=== PATIENT | male | born 1990 | race Caucasian/White ===

== ENCOUNTER 2016-11-19 17:20 | Inpatient (IN) | payer OTHER ==
[~2016-11-19] VITALS: Ht 180.3 cm; Wt 82.4 kg
[2016-11-19 17:31] VITALS: BP 110/67; PULSE 136; RESP 16; O2SAT 100
[2016-11-19 17:45] VITALS: BP 115/79; PULSE 100; RESP 13; O2SAT 99
[2016-11-19] MEDS ORDERED: Pantoprazole 4 mg/mL 10 mL Inj ONE (17:56)
[2016-11-19] MEDS ORDERED: Ondansetron 2 mg/mL 2 mL Inj ONE (17:57)
[2016-11-19 18:10] LABS: BASOPHILS % (AUTO) 0.3 % (0-3); EOSINOPHILS % (AUTO) 2.3 % (0-5); MONOCYTES % (AUTO) 6.9 % (4-12); Mean Corpuscular Hemoglobin 29.1 pg (27.0-35.0); Mean Corpuscular Volume 84.4 fL (81-100); NEUTROPHILS % (AUTO) 60.9 % (40-74); Platelet Count 354 bil/L (150-400)
--- NOTE | 2016-11-19 18:15 | ED.REPORT ---
HPI-GI Bleed Date of Service Nov 19, 2016 ED Provider: Ariel Torres MD Patient is a 26 year old male who presents to the ED accompanied by his mother due to hematemesis and hematuria this morning. He noticed intermittent abdominal and back pain beginning two days ago. Pain has increased in severity since onset. Pt had an ulcer ten years ago and describes this as the same type of pain. He has not had any issues with ulcers since that occurrence. He does not drink regularly. He is borderline tachycardic upon arrival. Nursing Notes Stated Complaint: BLEEDING ULCER, THROWING UP Chief Complaint: Male Abdominal Pain Nursing Notes Reviewed: Yes Allergies: Coded Allergies: No Known Allergies (Verified , 11/19/16) No Active Prescriptions or Reported Meds General Time Seen by Provider: 18:20 Chief Complaint Chief Complaint: Vomiting bright red blood Hx Obtained From: Patient Arrived By: Walk-in Onset Occurred: 5 - 8 hours ago Symptom Duration: Since onset Recent Healthcare: No recent doctor visit, No recent hospitalization Similar Sx Previous: No Past Medical History Past Medical History ulcer Social History Other Social History: Local resident Ambulatory Status Independent Review of Systems GI: Reports: Abdominal pain, Hematemesis, Hematochezia Complete sys rev & neg: except as marked. Musculoskeletal: Reports: Back pain Physical Exam Initial Vital Signs Vital Signs (First) Date Time Temp Pulse Resp B/P Pulse Ox O2 Delivery O2 Flow Rate FiO2 11/19/16 17:31 36.5 136 16 110/67 100 11/19/16 17:45 Nasal Cannula 2 Initial VS: Reviewed (pal) Head / Eyes: Atraumatic, Normocephalic, PERRL ENT: Mucous membranes moist, Conjunctiva normal, No scleral icterus Neck: Supple, Non-tender, Full range of motion Extremities: Vascular intact, Neuro intact, No swelling, No tenderness Skin: Warm, Dry, No cyanosis Neurologic: Alert, Oriented, Nonfocal Psychiatric: Mood/affect normal, Behavior normal, Normal thought content General/Constitutional: Awake, Alert, Cooperative Appearance / Presentation: Positive: Pale Respiratory / Chest: Atraumatic, Breath sounds NL, Breath sounds = bilat, No respiratory distress Cardiovascular: Heart rate NL, Regular rhythm, Heart sounds NL Abdomen: Atraumatic, Soft, Non-tender, No guarding, No rebound Rectum / Perineum: Atraumatic Interpretation & Diagnostics Lab Results Interpretation Result Diagram: 11/19/16 2240 11/19/16 1750 Test 11/19/16 17:50 White Blood Count 11.0th/mm3 (3.8-10.1) Red Blood Count 3.92mil/mm3 (4.40-5.80) Mean Corpuscular Volume 84.4fL (81-100) Mean Corpuscular Hemoglobin 29.1pg (27.0-35.0) Mean Corpuscular Hemoglobin Concent 34.4% (32.0-37.0) Red Cell Distribution Width 12.1% (12.3-15.4) Platelet Count 354bil/L (150-400) Neutrophils (%) (Auto) 60.9% (40-74) Lymphocytes (%) (Auto) 29.2% (14-46) Monocytes (%) (Auto) 6.9% (4-12) Eosinophils (%) (Auto) 2.3% (0-5) Basophils (%) (Auto) 0.3% (0-3) Prothrombin Time 11.0sec (8.1-12.5) Prothromb Time International Ratio 1.03ratio Sodium Level 138mEq/L (134-144) Potassium Level 3.6mEq/L (3.5-5.2) Chloride Level 101mEq/L (97-108) Carbon Dioxide Level 21mmol/L (18-29) Blood Urea Nitrogen 32mg/dL (6-20) Creatinine 0.95mg/dL (0.76-1.27) Estimat Glomerular Filtration Rate 101mL/min (>59) Glucose Level 145mg/dL (60-99) Calcium Level 8.5mg/dL (8.5-10.1) Magnesium Level 1.8mg/dL (1.6-2.6) Total Bilirubin 0.6mg/dL (0.0-1.2) Aspartate Amino Transf (AST/SGOT) 14U/L (0-50) Alanine Aminotransferase (ALT/SGPT) 15U/L (0-44) Alkaline Phosphatase 58U/L (25-150) Total Protein 6.1g/dL (6.4-8.4) Albumin 4.1g/dL (3.4-5.0) Lipase 25U/L (13-60) ECG Interpretation Time: 18:50 Interpreted by: ED physician Normal ECG Interpretation: Normal rate, Normal sinus rhythm, No acute ischemic changes, Normal QRS, Normal axis, Normal intervals, No change from prior ECGs, Adequate tracing X-Ray Chest Interpretation Chest Xray Interpretation: IMPRESSION: No acute cardiopulmonary findings. Dictated by: Shivani Arthur M.D. on 11/19/2016 at 18:51 Approved by: Shivani Arthur M.D. on 11/19/2016 at 18:51 View: Portable Interpretation / Wet Read by: Interpret - Radiologist Re-Eval/Medical Decision Med Decision/Clinical Course 26-year-old with a prior history of ulcer ten years ago presents with similar symptoms and again is vomiting blood with black material in his stool is grossly heme positive. Initial hemoglobin is slightly low. BUN is elevated suggesting blood ingestion. No liver disease or reason to suspect varices. Likely recurrent ulcer. Discussed with GI. Admitted now for monitoring of hemoglobin and transfusion if need be. Transported in stable condition. Re-Evaluation/Progress : Time of Eval: 19:15 Patient Status: Condition unchanged Re-Evaluation/Progress Note: Nurse reports that pt has vomited and had diarrhea again. Both had red coloration. Consultation : Referral / Consult Name: Eliseo Bingham MD Consulted With: Hospitalist Call Returned at: 21:42 Automatic Profile Sander Operator: Agrees with eval, Agrees with plan Note: Case discussed. Dr. Bingham accepts admit. Counseled Regarding: Diagnosis, Lab results, Need for admission Discharge & Departure Impression: Primary Impression: UGI bleed Disposition: ADMITTED TO HOSPITAL Discharge Condition All VS Reviewed: Yes Condition: Stable Referrals: Massimo Small MD (PCP) [facility] Attestation Portion of this note were transcribed by Sarah Waters. I, Dr. Torres, personally performed the history, physical exam, and medical decision-making: I reviewed and confirmed the accuracy for the information in the transcribed note. Signed by: richard Shankar, 11/19/16 2200 copies to: Massimo Small MD, Christopher W MD Nov 19, 2016 18:15 Sarah Waters Nov 19, 2016 18:26
[2016-11-19] MEDS ORDERED: 0.9% Sodium Chloride 1,000 ML IV ONE ×2 (18:16→22:00)
[2016-11-19] MEDS ORDERED: Octreotide Inj 500 MCG in 0.9% Sodium Chloride 100 ML IV ONE (18:20)
[2016-11-19] MEDS ORDERED: Pantoprazole Inj 80 MG, Pharmacy To Mix 1 EA in 0.9% Sodium Chloride 80 ML IV ONE ×2 (18:20)
[2016-11-19 18:26] LABS: INR 1.03 ratio
--- NOTE | 2016-11-19 18:53 | DRSVH ---
PROCEDURE: X-RAY CHEST ONE VIEW, PORTABLE ([id number]) INDICATIONS: ugi bleed TECHNIQUE: One view of the chest was acquired. COMPARISON: None. FINDINGS: Surgical changes and devices: None. Lungs and pleura: No pleural effusions or pneumothorax. Lungs are clear. Mediastinum: Mediastinal contours appear normal. Heart size is normal. Bones and chest wall: No suspicious bony lesions. Overlying soft tissues appear unremarkable. IMPRESSION: No acute cardiopulmonary findings. Dictated by: Shivani Arthur M.D. on 11/19/2016 at 18:51 Approved by: Shivani Arthur M.D. on 11/19/2016 at 18:51
[2016-11-19] MEDS ORDERED: Ondansetron 2 mg/mL 2 mL Inj IVPUSH PRN (22:10)
[2016-11-19] MEDS ORDERED: Alum-Mag Hydrox-Simeth 30 mL Suspension PO PRN (22:10)
[2016-11-19] MEDS ORDERED: Polyethylene Glycol (PEG) 17 Gm Powder PO PRN (22:10)
[2016-11-19] MEDS ORDERED: EPINEPHrine 0.1 mg/mL 10 mL Syringe ONE (22:19)
[2016-11-19 22:22] VITALS: BP 117/52; PULSE 87; RESP 16; O2SAT 98
[2016-11-19 23:02] VITALS: BP 124/69; PULSE 83; RESP 16; O2SAT 100
--- NOTE | 2016-11-19 23:02 | PCM.HPMED ---
Subjective Date of Service Nov 19, 2016 Primary Provider: Admitting Physician: Yamila Fleming MD Primary Care Physician: Massimo Small MD Attending Physician: Yamila Fleming MD Admit Status: From the Emergency Department Chief Complaint: Hematochezia, hematemesis. Back pain History of Present Illness: Patient is a pleasant 26-year-old gentleman who presented to emergency department accompanied by his mother after having episode of hematemesis and hematochezia early this morning. 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 He has a history of hematemesis and hematochezia at the age of 16 for which he underwent endoscopy and was found to have a rather large duodenal ulcer, per mother there were told this was due to H. pylori and he was placed on the standard treatment. He had follow-up endoscopy performed several months later and was deemed to be resolved. He has not been on any medication since. He denies any trauma, or any precipitating event to cause recurrence of the symptoms. He denies copious alcohol use, last drink was 2-3 weeks ago. He does not smoke, he does not do recreational drugs. Studies only had lightheadedness and dizziness since presenting to the emergency department. He does not have any chest pain, shortness of breath, weakness, numbness, changes in vision, headache, chest palpitations, dysuria. He denies any abdominal pain or discomfort. An attempt to quantify, patient claims he believes he has put out between 6-10 "Coke cans" of blood, all but half a can with per bowel movement. Says it is a mix of black and bright red blood. In the emergency department he had a heart rate of 136, blood pressure 110/67, satting 100% on room air, afebrile, White blood cells 11.0, hemoglobin 11.4, hematocrit 33.1, RDW 12.1, platelets 354. Electrolytes were normal, BUN 32, creatinine 0.95, glucose 145, magnesium 1.8, liver enzymes normal, alkaline hosphatase normal, total protein 6.1, and lipase was 25. EKG: Rate 96, sinus rhythm, normal axis, no evidence of acute ischemia, infarction, or AV conduction abnormality. Chest x-ray was read as "o acute cardiopulmonary findings." Review of Systems: Comprehensive review of systems negative unless specified in history of present illness Allergies Coded Allergies: No Known Allergies (Verified , 11/19/16) Home Medications Denies any home medications PMH Duodenal ulcer secondary to H. pylori infection. Surgical History Endoscopy x2 Mars teeth extraction when child Family History Father: Myocardial infarction, hyperlipidemia, hypertension. Mother: Denies any medical history. Social History Occupation: pole truck driver Hx Alcohol Use: Yes (occasional, last drink 2-3 weeks ago) Hx Substance Use: No Hx Tobacco Use: No Smoking Status: Never Smoker Living Arrangement: with Family (lives with mother and father) Exam Vital Signs Vital Sign - Last Date Time Temp Pulse Resp B/P Pulse Ox O2 Delivery O2 Flow Rate FiO2 11/19/16 22:22 87 16 117/52 98 11/19/16 17:45 Nasal Cannula 2 11/19/16 17:31 36.5 Exam General: Laying in bed, no apparent distress. HEENT: Normocephalic, atraumatic, EOMI grossly, his membranes moist, conjunctiva pink. Cardiovascular: Regular rate and rhythm, no clicks murmurs rubs, peripheral pulses 2/4 equal bilaterally Pulmonary: Clear to auscultation bilaterally, no W/R/R. Abdominal: Soft to palpation, bowel sounds present 4, no hepatosplenomegaly. Negative rebound. Extremities: No edema appreciated. No tenderness, asymmetry. Neuro: Neurologically grossly intact, strength is equal bilaterally upper and lower extremities. MSK: able to move extremities on their own volition, strength 5 out of 5 equal bilaterally to upper and lower extremities. Lab and Diagnostics Result Diagram: 11/19/16 1750 11/19/16 1750 X-Rays, CTs and MRIs Portable chest x-ray 11/19/2016 IMPRESSION: No acute cardiopulmonary findings. Dictated by: Shivani Arthur M.D. on 11/19/2016 at 18:51 12-lead ECG Please see history of present illness Assessment & Plan 26-year-old male with history of duodenal ulcer presents to the emergency room with hematochezia, hematemesis 1 day after having back pain for the last 2 days , found to be mildly anemic. #1 Acute upper GI bleed, present on admission, evaluation and treatment initiated -Likely due to duodenal ulcer, recurrence - IV Pantoprazole gtt and Octreotide gtt -Start IV Ceftriaxone 1g Q24h x 7 days for prophylaxis -Avoid gastric irritant medications -Strict nothing by mouth at midnight -Trending H&H Q8h, but if increased bleeding episodes, consider shorter intervals -Transfuse if Hgb <7 -GI Consulted and aware of patient, will see in the morning. VTE Prophylaxis with SCDs, avoid antithrombotic Street active bleeding GI prophylaxis: PPI Pain management: Patient denies any active pain. Pain Evaluation: Adequate Pain Control GI Prophylaxis: Proton Pump Inhibitor VTE Prophylaxis Indicated: Contraindicated VTE Prophylaxis: SCDs Resuscitation Status: CPR: Attempt Resuscitation Attending Statement Pt seen and examined by myself and agree with above plan. Anam Sarkar DO Nov 19, 2016 23:02 Yamlia Fleming MD Nov 20, 2016 05:57
[2016-11-19 23:04] VITALS: PULSE 86
[2016-11-20] VITALS (11 sets, daily range): BP systolic 110–138; BP diastolic 62–71; PULSE 55–91; RESP 14–16; O2SAT 94–97
[2016-11-20] MEDS ORDERED: cefTRIAXone Inj 1,000 MG in Dextrose 5% Minibag Plus 50 ML IV SCH ×2
[2016-11-20] MEDS: 0.9% Sodium Chloride 1,000 ML IV SCH ×4 (00:31→23:13)
[2016-11-20] MEDS: Sodium Chloride LOK Flush 10 mL Syringe IVFLUSH SCH ×3 (00:32→16:30)
[2016-11-20] MEDS: Octreotide Inj 500 MCG in 0.9% Sodium Chloride 99 ML IV SCH ×3 (01:31→13:42)
[2016-11-20] MEDS: Pantoprazole 8 mg/Hr Infusion IV SCH ×4 (04:57→16:42)
--- NOTE | 2016-11-20 05:55 | NUR ---
Arrival to [facility] room 3013 Patient arrived to [facility] room 3013 at about 2300. Alert and orientedx4 able to make needs known. denies pain and nausea. protonix gtt and octreotide gtt infusing. provided admission video for patient. admit completed. patient takes no home medications and has no allergies. patient informed of plan of care and is aware that he is NPO and will have a GI consultation in the AM.
--- NOTE | 2016-11-20 05:59 | NUR ---
Heart Rate metallographic technician informed me that patients HR in the 150's. Patient was up to bathroom having BM. patient states "I feel just fine" patient helped back to bed by charge nurse. HR 70-80's at rest. vitals stable. Will continue to monitor.
[2016-11-20 06:10] LABS: BASOPHILS % (AUTO) 0.3 % (0-3); EOSINOPHILS % (AUTO) 2.1 % (0-5); MONOCYTES % (AUTO) 8.1 % (4-12); Mean Corpuscular Hemoglobin 28.5 pg (27.0-35.0); Mean Corpuscular Volume 85.9 fL (81-100); NEUTROPHILS % (AUTO) 57.4 % (40-74); Platelet Count 216 bil/L (150-400)
--- NOTE | 2016-11-20 08:00 | NUR ---
Off unit Pt off unit to GI. microbiology technician notified. Addendum: 11/20/16 at 1829 by TIANNA DUBON RN Pt back on unit ~1030.
[2016-11-20] MEDS ORDERED: fentaNYL-PF 50 mCg/mL 2 mL Inj IVPUSH PRN (08:25)
[2016-11-20] MEDS: Lactated Ringer's 1,000 ML IV SCH (10:21)
--- NOTE | 2016-11-20 11:09 | PCM.PNMED ---
Subjective Date of Service Nov 20, 2016 Subjective Patient is sleeping but was aroused to a sort of obtunded state status post EGD has not had any more nausea/vomiting or emesis as chest pain or weakness Exam Vital Signs Vital Sign - Last Date Time Temp Pulse Resp B/P Pulse Ox O2 Delivery O2 Flow Rate FiO2 11/20/16 10:26 36.8 73 16 115/66 95 Room Air 11/19/16 17:45 2 Intake and Output 11/19/16 11/19/16 11/20/16 Cumulative From/Thru 15:00 23:00 07:00 11/19/16 17:31 - 11/20/16 05:41 Intake Total 2000 ml 0 ml 2000 ml Balance 2000 ml 0 ml 2000 ml Intake Oral 0 ml 0 ml IV Total 2000 ml 2000 ml # Voids 1 1 # Bowel Movements 1 1 Exam General: Laying in bed, no apparent distress. Well-nourished white male. Somnolent but easily aroused HEENT: Normocephalic, atraumatic, EOMI grossly, his membranes moist, conjunctiva pink. Cardiovascular: Regular rate and rhythm, no clicks murmurs rubs, peripheral pulses 2/4 equal bilaterally Pulmonary: Clear to auscultation bilaterally, no W/R/R. Abdominal: Soft to palpation, bowel sounds present 4, no hepatosplenomegaly. Negative rebound. Extremities: No edema appreciated. No tenderness, asymmetry. Neuro: Neurologically grossly intact, strength is equal bilaterally upper and lower extremities. Nonfocal MSK: able to move extremities on their own volition, Lab and Diagnostics Result Diagram: 11/20/16 0540 11/20/16 0540 X-Rays, CTs and MRIs Portable chest x-ray 11/19/2016 IMPRESSION: No acute cardiopulmonary findings. Dictated by: Shivani Arthur M.D. on 11/19/2016 at 18:51 12-lead ECG Please see history of present illness Assessment & Plan 26-year-old male with history of duodenal ulcer presents to the emergency room with hematochezia, hematemesis 1 day after having back pain for the last 2 days , found to be mildly anemic. #1 Acute upper GI bleed, present on admission, evaluation and treatment initiated -Likely due to duodenal ulcer, recurrence - IV Pantoprazole gtt and Octreotide gtt-DC octreotide 11/20 no indication patient does not have a history of cirrhosis or portal hypertension -Start IV Ceftriaxone 1g Q24h x 7 days for prophylaxis -DC Rocephin 11/20 no indication patient does not have a history of cirrhosis or portal hypertension -Avoid gastric irritant medications -Trending H&H Q8h, but if increased bleeding episodes, consider shorter intervals -Transfuse if Hgb <7 -GI Consulted, endoscopy with injection of gastric ulcer completed 11/20, official dictation still pending #Acute blood loss anemia-following H&H will transfuse as needed VTE Prophylaxis with SCDs, avoid antithrombotic Street active bleeding GI prophylaxis: PPI Pain management: Patient denies any active pain. GI Prophylaxis: Proton Pump Inhibitor VTE Prophylaxis: SCDs Resuscitation Status: CPR: Attempt Resuscitation Randy Armando MD Nov 20, 2016 11:09
--- NOTE | 2016-11-20 18:29 | NUR ---
NPO/bleeding Pt remained NPO all shift per MD order. Lab draws done as ordered, gtt's running without issue. Pt has not had a BM for a stool sample yet. Denies any pain/discomfort.
[2016-11-20 19:50] LABS: Unsaturated Iron Binding 200.1 ug/dL
[2016-11-21] MEDS: Sodium Chloride LOK Flush 10 mL Syringe IVFLUSH SCH ×3 (00:30→17:15)
--- NOTE | 2016-11-21 00:32 | CONS ---
[address] [address] CONSULTATION REPORT PATIENT: JENNIFER JENKINS : 1990 MR#: [id number] ADMIT: 11/19/2016 JOB ID: [id number] DATE OF SERVICE: REASON FOR CONSULTATION: Hematemesis and melena. REQUESTING PHYSICIAN: Emergency department physician. HISTORY OF PRESENT ILLNESS: The patient is a very pleasant 26-year-old gentleman with essentially no medical problems, who presented to the hospital after having an episode of hematemesis and melena. He states he was well up until two days ago when he started having what he states was back pain. This was not associated with any fevers, chills, sweats, however, the pain was constant. On the day of admission, he had an episode of hematemesis and melena; and therefore, he presented to the hospital. He denies any had daily NSAID use. He does have a history of peptic ulcer disease. At the age of 16, he underwent an endoscopy and was found to have a duodenal ulcer and he states that he was treated for H. pylori. Following that, had no complaints up until two days prior to admission. PAST MEDICAL HISTORY: Significant for history of duodenal ulcer. PAST SURGICAL HISTORY: None. FAMILY HISTORY: Significant for coronary artery disease, hyperlipidemia, hypertension. HOME MEDICATIONS: None. ALLERGIES: He has no known drug allergies. REVIEW OF SYSTEMS: His 10-point review of systems is otherwise negative except as mentioned in the HPI. PHYSICAL EXAMINATION: His vital signs were the following: His temperature was 36.7, his pulse was 55, blood pressure 127/71, respiratory rate was 16, O2 saturations 97% on room air. Generally, he is a young man in no apparent distress. He was oriented to person, place, and time, and answers questions appropriately. HEENT: Mild pallor. There is no icterus. Oropharynx is clear. Chest exam is clear to auscultation bilaterally. Cardiovascular exam: S1, S2 heard. Abdomen: Soft, nontender, nondistended, without hepatosplenomegaly. Extremities without edema. LABORATORIES: On admission: His hemoglobin was 14.1 with hematocrit of 33.1. This subsequently decreased to 8.1 and 24.4. His PT was 11, INR was 1.03. His sodium was 138, potassium 3.6, chloride of 101, CO2 21, BUN of 32, creatinine of 0.95, glucose of 145. His LFTs were normal except his total protein was mildly depressed at 6.1. Chest x-ray showed no acute cardiopulmonary disease. ASSESSMENT AND PLAN: A 26-year-old gentleman with a history of duodenal ulcer and Helicobacter pylori, presenting with hematemesis and melena with anemia. My impression is that he may have a recurrence of his duodenal ulcer versus an ulcer in the stomach. Other etiologies may include Dieulafoy lesion versus esophagitis versus Albertina-Salas tear, though less likely as he has had no history of vomiting prior to the hematemesis. He is on a proton pump inhibitor drip, as well as octreotide drip, and had been empirically given ceftriaxone. Would recommend discontinuing ceftriaxone, discontinue octreotide, and would continue PPI drip for now, but also ensure that he has two large-bore IVs and follow H and H closely, and will plan for urgent endoscopy. Thank you for allowing me to participate in the patients care. If you have any further questions, please do not hesitate to contact me.
[2016-11-21] MEDS: Pantoprazole 8 mg/Hr Infusion IV SCH ×2 (01:34)
[2016-11-21 01:39] VITALS: BP 112/66; PULSE 71; RESP 16; O2SAT 96
--- NOTE | 2016-11-21 02:15 | ENDO ---
[address] [address] ENDOSCOPY PROCEDURE PATIENT: JENNIFER JENKINS : 1990 MR#: [id number] ADMIT: 11/19/2016 JOB ID: [id number] PROCEDURE: Endoscopy. INDICATION: Hematemesis and melena. ASA CLASSIFICATION: 2. MALLAMPATI SCORE: 2. INSTRUMENTS USED: GIF-190, as well as a double channel 2T therapeutic scope. PROCEDURE DETAILS: After informed consent was obtained, the patient was brought to the GI suite, where he was placed on oxygen via nasal cannula and monitored with continuous pulse oximeter, telemetry, and blood pressure monitoring. A time-out was performed. Then, a bite block was placed and medications were administered for sedation. The standard EGD scope was inserted through the bite block and advanced under direct visualization to the second portion of the duodenum. FINDINGS: 1. In the distal duodenal bulb, on the anterior wall, there was an approximately 5-6 mm ulcer with a visible vessel and clot. In a quadrantic fashion, 1:10,000 epinephrine was injected. Blanching was noted. Next, using a 7-Trinidadian gold probe, cautery was applied to the visible vessel and ulcer. At this point, there was rapid bleeding. With the standard endoscope, I was unable to suction as well as visualize the ulcer and bleeding site adequately. Therefore, the standard upper endoscope was removed and therapeutic scope was then inserted into the duodenal bulb. At this point, with the application of a 10-Trinidadian Gold Probe, we were able to achieve hemostasis. The site was then irrigated with copious amounts of water. The remainder of the duodenum was examined and appeared unremarkable. There was some fresh blood seen from the bleeding that we encountered from treating the ulcer. However, this was cleared and evacuated, and there was no further accumulation. The scope was then withdrawn back into the antrum, and the inspected pylorus, antrum and gastric body appeared unremarkable. 2. Retroflexed views in the gastric body revealed a normal-appearing cardia and fundus. At this point, the scope was then advanced back into the duodenal bulb to visualize the ulcer and treated site. There was no evidence of any further bleeding, and there was an eschar in the base of the ulcer. At this point, the scope was then withdrawn. The GE junction appeared to be unremarkable. 3. Normal-appearing esophagus. IMPRESSION: Distal duodenal bulb inferior wall ulcer with a visible vessel and adherent clot, treated with a combination of 1:10,000 epinephrine and Gold Probe cautery. RECOMMENDATIONS: 1. Continue PPI for 24 hours. Continue n.p.o. Continue IV hydration. 2. Continue to follow H and H closely. In the morning, if his H and H remain stable and negative for further bleeding, could start clear liquid diet, discontinue PPI drip and place on a PPI daily. Also recommend checking stool for H. pylori stool antigen. COMPLICATIONS: None. ESTIMATED BLOOD LOSS: Less than 20-30 mL. MTDD
[2016-11-21] MEDS: Octreotide Inj 500 MCG in 0.9% Sodium Chloride 99 ML IV SCH (02:55)
--- NOTE | 2016-11-21 03:09 | NUR ---
Patient remains stable Patient has remained stable with vitals, labs, and symptoms. Denies any nausea or pain. No BM or emesis. Taking in a small amount of clear liquids this morning with no issues.
[2016-11-21] MEDS: 0.9% Sodium Chloride 1,000 ML IV SCH (04:06)
[2016-11-21 05:26] VITALS: BP 110/64; PULSE 70; RESP 16; O2SAT 97
[2016-11-21] MEDS ORDERED: Pantoprazole 40 mg ER24 Tablet PO SCH (07:30)
[2016-11-21 07:51] LABS: Mean Corpuscular Hemoglobin 28.6 pg (27.0-35.0); Mean Corpuscular Volume 87.3 fL (81-100)
[2016-11-21] MEDS: Lactated Ringer's 1,000 ML IV SCH (08:23)
--- NOTE | 2016-11-21 08:56 | NUR ---
Social Work Note - Screening: D/A: EMR reviewed, the Pt is a 26 y/o male that was admitted for UGI bleed. The Pts PCP is MD Massimo Small and his insurance is [employer] The lives in [place] with his family and is independent in his ADLs. [facility] paperwork reviewed, copy given to Pt. GI consulted, endoscopy with injection of gastric ulcer completed 11/20. Official dictation pending as per progress notes. The Pt denies any SW needs at this time, SW to follow if needs arise. P: The Pt likely to discharge home when medically stable with family providing POV transportation. The Pt denies any SW needs at this time, SW to follow if needs arise. Kisha Servin, [employer] Gloria Price MSW
[2016-11-21 08:57] VITALS: BP 103/62; PULSE 69; RESP 17; O2SAT 98
--- NOTE | 2016-11-21 09:20 | NUR ---
advancing diet pt asks for some more food this am. pt has an advanced diet as tolerated. toast, crackers, rikki crackers, and peanut butter given. Advised pt to take it slow, he agreed. pt tolerated diet advance without pain or discomfort.
--- NOTE | 2016-11-21 11:10 | PCM.PNMED ---
Subjective Date of Service Nov 21, 2016 Subjective GASTROENTEROLOGY PROGRESS NOTE Patient states that he feels improved; denies any nausea, vomiting, abdominal pain, diarrhea. Denies hematemesis, hematochezia, melena. Last BM yesterday. Tolerating po intake of clears well. States he is hungry. Exam Vital Signs Vital Sign - Last Date Time Temp Pulse Resp B/P Pulse Ox O2 Delivery O2 Flow Rate FiO2 11/21/16 08:57 37.0 69 17 103/62 98 Room Air 11/19/16 17:45 2 Intake and Output 11/20/16 11/20/16 11/21/16 Cumulative From/Thru 15:00 23:00 07:00 11/19/16 17:31 - 11/21/16 06:39 Intake Total 1160 ml 1161 ml 1700 ml 6021 ml Balance 1160 ml 1161 ml 1700 ml 6021 ml Intake Oral 450 ml 300 ml 750 ml IV Total 1160 ml 711 ml 1400 ml 5271 ml # Voids 1 2 4 # Bowel Movements 0 0 1 Exam General: AAOx3, pleasant and cooperative; no acute distress HENT: Atraumatic, EOMI, mucus membranes moist Neck: No pain with ROM; trachea midline Cardiac: RRR; no murmurs appreciated at time of examination Respiratory: Clear to auscultation bilaterally; no wheeze Abdomen: Soft, nontender, nondistended Extremities: No edema Skin: Warm, dry Neuro: CNII-XII grossly intact; facial expressions symmetric; speech without slur Psych: Appropriate mood, affect, and responses to questioning; good insight and judgment Lab and Diagnostics Result Diagram: 11/21/16 0600 11/21/16 0600 X-Rays, CTs and MRIs Portable chest x-ray 11/19/2016 IMPRESSION: No acute cardiopulmonary findings. Dictated by: Shivani Arthur M.D. on 11/19/2016 at 18:51 12-lead ECG Please see history of present illness Assessment & Plan Mr. Urena is a pleasant 26 year old gentleman with history of duodenal ulcer secondary to H. pylori and associated hematemesis and hematochezia, that presented to [facility] 11/19 with a two day history of abdominal and back pain and a one day history of hematemesis, melena, and hematochezia. GI was consulted to assist in the evaluation of his presenting symptoms. EGD 11/20: Distal duodenal bulb inferior wall ulceration with a visible vessel and adherent clot; tx with combination epi and cautery. Assessments - Acute UGIB secondary to duodenal ulceration with visible vessel s/p epi and cauterization - History of duodenal ulceration secondary to H. pylori s/p treatment Plan - Monitor HH - Recommend H. pylori stool Ag; noted as currently ordered - Continue PPI daily - Start full liquid if HH remain stable and no evidence further bleeding noted Thank you for this consult. If you have any additional questions or concerns, please do not hesitate to contact us. Total time: 40 minutes GI Prophylaxis: Proton Pump Inhibitor VTE Prophylaxis: SCDs Resuscitation Status: CPR: Attempt Resuscitation Attending Statement Pt seen and examined agree with resident physician note no further bleedinh H/H down an bit, cont to follow cont PPI, could change to daily liquids today and if H/H stable with no overt bleeding could start regular diet for breakfast and if tolerates breakfast and lunch then he could go home he will need repeat EGD in 8-12 weeks he will need to stay on PPI till repeat endoscopy my office will call him to schedule clinic visit With his anemia I don't believe 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 Recommend he also follow with his PCP [place] DO Nov 21, 2016 11:10 Eliseo Bingham MD Nov 21, 2016 20:46
--- NOTE | 2016-11-21 11:35 | NUR ---
Social Work-readiness for discharge: Data:EMR reviewed. Pt is on day 2 of hospitalization for UGI bleed per H&P. Pt is not medically stable anticipate later today or tomorrow. GI working on advancing pt's diet. SW confirmed with pt home no needs. Pt's mother to provide transport home when medically stable.Per RN notes, pt has been up independent in his room. No anticipated discharge needs. SW will continue to follow if needs arise. Assessment:Pt who is independent at baseline. Plan:Pt to discharge home with mother when medically stable via POV. No anticipated discharge needs. SW will continue to follow if needs arise. WILFRIOD Bustillos
[2016-11-21 12:37] VITALS: BP 113/70; PULSE 74; RESP 16; O2SAT 95
--- NOTE | 2016-11-21 13:24 | PCM.PNMED ---
Subjective Date of Service Nov 21, 2016 Subjective Does not remember meeting me yesterday. Had a little bit of upset stomach from chicken soup. Currently no nausea vomiting, no night diarrhea no chest pain, no dyspnea. Anxious to discharge. Exam Vital Signs Vital Sign - Last Date Time Temp Pulse Resp B/P Pulse Ox O2 Delivery O2 Flow Rate FiO2 11/21/16 05:26 37.0 70 16 110/64 97 Room Air 11/19/16 17:45 2 Intake and Output 11/20/16 11/20/16 11/21/16 Cumulative From/Thru 15:00 23:00 07:00 11/19/16 17:31 - 11/21/16 06:39 Intake Total 1160 ml 1161 ml 1700 ml 6021 ml Balance 1160 ml 1161 ml 1700 ml 6021 ml Intake Oral 450 ml 300 ml 750 ml IV Total 1160 ml 711 ml 1400 ml 5271 ml # Voids 1 2 4 # Bowel Movements 0 0 1 Exam General: Laying in bed, no apparent distress. Well-nourished white male. Awake and oriented 3 HEENT: Normocephalic, atraumatic, EOMI grossly, his membranes moist, conjunctiva pink. Cardiovascular: Regular rate and rhythm, no clicks murmurs rubs, Pulmonary: Clear to auscultation bilaterally, no W/R/R. Abdominal: Soft to palpation, bowel sounds present 4, no hepatosplenomegaly. Negative rebound. Extremities: No edema appreciated. No tenderness, asymmetry. Neuro: Neurologically grossly intact, strength is equal bilaterally upper and lower extremities. Nonfocal MSK: Moving 4 Lab and Diagnostics Result Diagram: 11/20/16 1920 11/20/16 0540 X-Rays, CTs and MRIs Portable chest x-ray 11/19/2016 IMPRESSION: No acute cardiopulmonary findings. Dictated by: Shivani Arthur M.D. on 11/19/2016 at 18:51 12-lead ECG Please see history of present illness Assessment & Plan 26-year-old male with history of duodenal ulcer presents to the emergency room with hematochezia, hematemesis 1 day after having back pain for the last 2 days , found to be mildly anemic. 11/21 Putting patient on daily pantoprazole and advancing diet still following H&H. High risk lesion for rebleed. Given trends will observe patient at least through 11/22 a.m. Diet per GI #1 Acute upper GI bleed, present on admission, evaluation and treatment initiated -Likely due to duodenal ulcer, recurrence - IV Pantoprazole gtt and Octreotide gtt-DC octreotide 11/20 no indication patient does not have a history of cirrhosis or portal hypertension -Start IV Ceftriaxone 1g Q24h x 7 days for prophylaxis -DC Rocephin 11/20 no indication patient does not have a history of cirrhosis or portal hypertension -Avoid gastric irritant medications -Trending H&H Q8h, but if increased bleeding episodes, consider shorter intervals -Transfuse if Hgb <7 -GI Consult/intervention noted/appreciated EGD injection of gastric ulcer completed 11/20, high risk lesion probably needs to be observed through 11/22 -Drip/IVs discontinued, pantoprazole daily as per GI recommendation, diet per GI #Acute blood loss anemia-following H&H will transfuse as needed -We will wait on supplementing iron till after discharge to give patient stomach a chance to heal prior to putting in an irritant like iron since he is not profoundly deficient yet VTE Prophylaxis with SCDs, avoid antithrombotic Street active bleeding GI prophylaxis: PPI Pain management: Patient denies any active pain. Greater than 35 minutes spent phone calls and speaking with patient/his mother as GI was in the endoscopy patient was anxious to discharge. Thank you very much for the updates obtained from multi site leasing consultant. GI Prophylaxis: Proton Pump Inhibitor VTE Prophylaxis: SCDs Resuscitation Status: CPR: Attempt Resuscitation Randy Armando MD Nov 21, 2016 07:22
[2016-11-21 16:41] VITALS: BP 102/65; PULSE 66; RESP 18; O2SAT 98
[2016-11-21 21:39] VITALS: BP 112/67; PULSE 64; RESP 16; O2SAT 97
[2016-11-22] MEDS: Sodium Chloride LOK Flush 10 mL Syringe IVFLUSH SCH ×2 (00:08→08:16)
--- NOTE | 2016-11-22 06:04 | NUR ---
Activity Pt remained in bed for the shift, no complaints of pain or discomfort. Vital WNL, pt on RA, and liquid diet. Left room with call light at bedside.
[2016-11-22 06:09] VITALS: BP 111/64; PULSE 63; RESP 16; O2SAT 97
--- NOTE | 2016-11-22 07:43 | PCM.DC.MED ---
Discharge Summary Date of Service Nov 22, 2016 Dates of Hospitalization Date of Hospital Admission Nov 19, 2016 at 22:18 Date of Discharge: Nov 22, 2016 Providers: Admitting Physician: Yamila Fleming MD Primary Care Physician: Massimo Small MD Attending Physician: Yamila Fleming MD Diagnosis at Time of Discharge Diagnosis at Time of Discharge Ulcer, GI bleed Consultations GI, [facility] Procedures XRay, CTs & MRIs Portable chest x-ray 11/19/2016 IMPRESSION: No acute cardiopulmonary findings. Dictated by: Shivani Arthur M.D. on 11/19/2016 at 18:51 ECG 12 Lead Please see history of present illness Invasive Procedures EGD FINDINGS: 1. In the distal duodenal bulb, on the anterior wall, there was an approximately 5-6 mm ulcer with a visible vessel and clot. In a quadrantic fashion, 1:10,000 epinephrine was injected. Blanching was noted. Next, using a 7-Bhutanese gold probe, cautery was applied to the visible vessel and ulcer. At this point, there was rapid bleeding. With the standard endoscope, I was unable to suction as well as visualize the ulcer and bleeding site adequately. Therefore, the standard upper endoscope was removed and therapeutic scope was then inserted into the duodenal bulb. At this point, with the application of a 10-Bhutanese Gold Probe, we were able to achieve hemostasis. The site was then irrigated with copious amounts of water. The remainder of the duodenum was examined and appeared unremarkable. There was some fresh blood seen from the bleeding that we encountered from treating the ulcer. However, this was cleared and evacuated, and there was no further accumulation. The scope was then withdrawn back into the antrum, and the inspected pylorus, antrum and gastric body appeared unremarkable. 2. Retroflexed views in the gastric body revealed a normal-appearing cardia and fundus. At this point, the scope was then advanced back into the duodenal bulb to visualize the ulcer and treated site. There was no evidence of any further bleeding, and there was an eschar in the base of the ulcer. At this point, the scope was then withdrawn. The GE junction appeared to be unremarkable. 3. Normal-appearing esophagus. IMPRESSION: Distal duodenal bulb inferior wall ulcer with a visible vessel and adherent clot, treated with a combination of 1:10,000 epinephrine and Gold Probe cautery. RECOMMENDATIONS: 1. Continue PPI for 24 hours. Continue n.p.o. Continue IV hydration. 2. Continue to follow H and H closely. In the morning, if his H and H remain stable and negative for further bleeding, could start clear liquid diet, discontinue PPI drip and place on a PPI daily. Also recommend checking stool for H. pylori stool antigen. COMPLICATIONS: None. ESTIMATED BLOOD LOSS: Less than 20-30 mL. Eliseo Bingham MD 11/20/16 3091 Brief History Patient is a pleasant 26-year-old gentleman who presented to emergency department accompanied by his mother after having episode of hematemesis and hematochezia early this morning. 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 He has a history of hematemesis and hematochezia at the age of 16 for which he underwent endoscopy and was found to have a rather large duodenal ulcer, per mother there were told this was due to H. pylori and he was placed on the standard treatment. He had follow-up endoscopy performed several months later and was deemed to be resolved. He has not been on any medication since. He denies any trauma, or any precipitating event to cause recurrence of the symptoms. He denies copious alcohol use, last drink was 2-3 weeks ago. He does not smoke, he does not do recreational drugs. Studies only had lightheadedness and dizziness since presenting to the emergency department. He does not have any chest pain, shortness of breath, weakness, numbness, changes in vision, headache, chest palpitations, dysuria. He denies any abdominal pain or discomfort. An attempt to quantify, patient claims he believes he has put out between 6-10 "Coke cans" of blood, all but half a can with per bowel movement. Says it is a mix of black and bright red blood. In the emergency department he had a heart rate of 136, blood pressure 110/67, satting 100% on room air, afebrile, White blood cells 11.0, hemoglobin 11.4, hematocrit 33.1, RDW 12.1, platelets 354. Electrolytes were normal, BUN 32, creatinine 0.95, glucose 145, magnesium 1.8, liver enzymes normal, alkaline hosphatase normal, total protein 6.1, and lipase was 25. EKG: Rate 96, sinus rhythm, normal axis, no evidence of acute ischemia, infarction, or AV conduction abnormality. Chest x-ray was read as "o acute cardiopulmonary findings. Hospital Course 26-year-old male with history of duodenal ulcer presents to the emergency room with hematochezia, hematemesis 1 day after having back pain for the last 2 days , found to be mildly anemic. 11/21 Putting patient on daily pantoprazole and advancing diet still following H&H. High risk lesion for rebleed. Given trends will observe patient at least through 11/22 a.m. Diet per GI #1 Acute upper GI bleed, present on admission, evaluation and treatment initiated - duodenal ulcer, recurrence - IV Pantoprazole gtt and Octreotide gtt-DC octreotide 11/20 no indication patient does not have a history of cirrhosis or portal hypertension -Start IV Ceftriaxone 1g Q24h x 7 days for prophylaxis -DC Rocephin 11/20 no indication patient does not have a history of cirrhosis or portal hypertension -Avoid gastric irritant medications -GI Consult/intervention noted/appreciated EGD injection of gastric ulcer completed 11/20, high risk lesionobserved through 11/22 - pantoprazole daily as per GI recommendation #Acute blood loss anemia-following H&H will transfuse as needed -We will wait on supplementing iron till after discharge to give patient stomach a chance to heal prior to putting in an irritant like iron, not iron deficient yet Exam Vital Signs (Last) Date Time Temp Pulse Resp B/P Pulse Ox O2 Delivery O2 Flow Rate FiO2 11/22/16 06:09 36.9 63 16 111/64 97 Room Air 11/19/16 17:45 2 Test 11/19/16 17:50 11/20/16 05:40 11/20/16 19:20 11/21/16 06:00 Prothrombin Time 11.0sec (8.1-12.5) Prothromb Time International Ratio 1.03ratio Magnesium Level 1.8mg/dL (1.6-2.6) Lipase 25U/L (13-60) Neutrophils (%) (Auto) 57.4% (40-74) Lymphocytes (%) (Auto) 31.8% (14-46) Monocytes (%) (Auto) 8.1% (4-12) Eosinophils (%) (Auto) 2.1% (0-5) Basophils (%) (Auto) 0.3% (0-3) Total Bilirubin 0.4mg/dL (0.0-1.2) Aspartate Amino Transf (AST/SGOT) 11U/L (0-50) Alanine Aminotransferase (ALT/SGPT) 11U/L (0-44) Alkaline Phosphatase 48U/L (25-150) Total Protein 4.6g/dL (6.4-8.4) Albumin 3.4g/dL (3.4-5.0) Reticulocyte Count,Calculated 2.0% (0.6-2.6) Iron Level 76ug/dL (35-150) Total Iron Binding Capacity 276ug/dL (250-450) Percent Iron Saturation 28%sat (15-50) Unsaturated Iron Binding 200.1ug/dL Vitamin B12 Level 841pg/mL (211-946) White Blood Count 6.4th/mm3 (3.8-10.1) Red Blood Count 2.52mil/mm3 (4.40-5.80) Mean Corpuscular Volume 87.3fL (81-100) Mean Corpuscular Hemoglobin 28.6pg (27.0-35.0) Mean Corpuscular Hemoglobin Concent 32.7% (32.0-37.0) Red Cell Distribution Width 12.0% (12.3-15.4) Platelet Count 179bil/L (150-400) Sodium Level 142mEq/L (134-144) Potassium Level 3.9mEq/L (3.5-5.2) Chloride Level 108mEq/L (97-108) Carbon Dioxide Level 22mmol/L (18-29) Blood Urea Nitrogen 10mg/dL (6-20) Creatinine 0.73mg/dL (0.76-1.27) Estimat Glomerular Filtration Rate 137mL/min (>59) Glucose Level 92mg/dL (60-99) Calcium Level 7.4mg/dL (8.5-10.1) Test 11/21/16 20:30 11/22/16 02:30 Hold Purple Top Tube Received (Received) Hemoglobin 7.3g/dL (13.8-17.2) Hematocrit 22.0% (41.0-50.0) Discharge Medications Discharge Medications Pantoprazole DR (Pantoprazole DR) 40 Mg Tablet.dr 40 MG PO DAILY Prescribed by: KANDI WINN MD Followup Plan Follow-up plan I would follow my blood counts at least weekly and more frequently if in doubt. Consider starting patient on iron, folate, B12 in 1-2 weeks' time as stomach heals Discharge Diet: Other (try to eat soft foods to give ulcer a chance to heal) Follow-up Provider: Massimo Small MD Follow-up with PCP in: 1 week Provider: Eliseo Bingham MD Follow-up in: Other (call for appointment probably in the next 2-4 weeks) Time spent Greater than 30 minutes copies to: Massimo Small MD, Andris E MD Nov 22, 2016 07:43
--- NOTE | 2016-11-22 07:43 | PCM.DIMED ---
Discharge Instructions Date of Service Nov 22, 2016 Dates of Hospitalization Nov 19, 2016 at 22:18 Discharge Diagnosis Discharge Diagnosis Ulcer, GI bleed Diet Other (try to eat soft foods to give ulcer a chance to heal) Call your provider Other (any other blood or black per rectum) Patient Instructions Follow-up plan I would follow my blood counts at least weekly and more frequently if in doubt. Follow-up Provider: Massimo Small MD Follow-up with PCP in: 1 week Provider: Eliseo Bingham MD Follow-up in: Other (call for appointment probably in the next 2-4 weeks) Randy Armando MD Nov 22, 2016 07:43
[2016-11-22] MEDS ORDERED: PANT40TA3 PO (07:45)
[2016-11-22] MEDS: Lactated Ringer's 1,000 ML IV SCH (08:16)
[2016-11-22] MEDS ORDERED: Pantoprazole 40 mg ER24 Tablet PO SCH (08:30)
--- NOTE | 2016-11-22 08:52 | NUR ---
Social Work-discharge: Data:EMR reviewed. Pt is on day 3 of hospitalization for upper GI bleed. Pt is medically stable for discharge. Pt has been up independent in his room. Pt's mother to provide transport home today. No other discharge needs identified. All updated and agreeable to plan. Assessment:Pt who is independent at baseline. Plan:Pt to discharge home today via POV. No other discharge needs identified. All updated and agreeable to plan. WILFRIDO Bustillos
--- NOTE | 2016-11-22 09:12 | NUR ---
discharge paperwork reviewed, no questions at this time. pt chooses to walk to private car to return to private residence. Belongings were bagged and given to the pt. pt denies pain or distress at this time.
[2017-02-15] MEDS ORDERED: FERR325T39 PO (10:51)
== END 2016-11-22 09:10 | disposition home or self-care (01) | DRG 378 ==
LOC: SED 17:20 → MPC 22:18
PROVIDERS: ADMIT Specialist; ATTEND Specialist
PROC: 0W3P8ZZ Control Bleeding in Gastrointestinal Tract, Via Natural or Artificial Opening Endoscopic (ICD-10-PCS; principal; 2016-11-20 08:30)
PROC: 3E0G8GC Introduction of Other Therapeutic Substance into Upper GI, Via Natural or Artificial Opening Endoscopic (ICD-10-PCS; 2016-11-20 08:30)
DX: K26.0 Acute duodenal ulcer with hemorrhage (principal); D62 Acute posthemorrhagic anemia

== ENCOUNTER 2017-02-16 11:35 | Day surgery (SDC) | payer OTHER ==
[~2017-02-16] VITALS: Ht 180.3 cm; Wt 81.6 kg
[~2017-02-16 11:35] MED LIST: 0.9% Sodium Chloride 1,000 ML IV SCH; FERR325T39 PO; PANT40TA3 PO; Sodium Chloride LOK Flush 10 mL Syringe IV PRN; fentaNYL-PF 50 mCg/mL 2 mL Inj IVPUSH PRN
[2017-02-16] MEDS ORDERED: fentaNYL-PF 50 mCg/mL 2 mL Inj IVPUSH ONE (11:36)
[2017-02-16 12:26] VITALS: BP 126/81; PULSE 57; RESP 12; O2SAT 99
[2017-02-16] MEDS ORDERED: 0.9% Sodium Chloride 1,000 ML IV ONE (13:53)
[2017-02-16 13:57] VITALS: BP 134/72; PULSE 68; RESP 16; O2SAT 98
[2017-02-16 14:03] VITALS: BP 123/68; PULSE 72; RESP 16; O2SAT 99
--- NOTE | 2017-02-17 00:06 | ENDO ---
[address] [address] ENDOSCOPY PROCEDURE PATIENT: JENNIFER JENKINS : 1990 MR#: [id number] ADMIT: 02/16/2017 JOB ID: [id number] DATE: 02/16/2017 PROCEDURE: Esophagogastroduodenoscopy. INDICATION: Patient with a history of bleeding duodenal ulcer. The patient has been brought back today to document ulcer healing. The patient's ASA classification is one. Mallampati score was one. MEDICATIONS: 1. Versed 7 mg. 2. Fentanyl 150 mcg. INSTRUMENT USED: [id number] PROCEDURE DETAILS: After informed consent was obtained, the patient was brought to the GI suite, where he was placed on oxygen via nasal cannula and monitored with continuous pulse oximeter, telemetry, and blood pressure monitoring. A time-out was performed. Then, he was placed in a left lateral decubitus position and medications were administered for sedation. A bite block was placed. The standard EGD scope was inserted through the bite block and advanced under direct visualization to the second portion of duodenum without difficulty. FINDINGS: 1. Normal-appearing duodenal bulb, first and second portion. Previously seen ulcer was not appreciated on today's exam. 2. Normal-appearing pylorus, antrum and gastric body. 3. Retroflexed views in the gastric body revealed a normal-appearing cardia and fundus. 4. Multiple random biopsies were obtained to evaluate for possibility of H. pylori. 5. Normal-appearing GE junction with a regular Z-line at 45 cm. 6. Normal-appearing esophagus. IMPRESSION: Normal esophagogastroduodenoscopy examination to second portion of duodenum. RECOMMENDATIONS: 1. Await biopsy results. 2. Follow up in GI clinic as needed. COMPLICATIONS: None. ESTIMATED BLOOD LOSS: Less than 5 mL.
--- NOTE | 2017-02-19 14:29 | PATH ---
SURGICAL PATHOLOGY Attending Physician:Erlin Smith CASE STATUS: Signed Out PATIENT NAME: JENNIFER JENKINS PID: [id number] : 1990 DATE COLLECTED:02/16/2017 21:08 SPECIMEN: Gastric, Biopsy CLINICAL HISTORY: 1). GASTRIC BIOPSY FINAL DIAGNOSIS: 1.GASTRIC BIOPSY: MINIMAL SUPERFICIAL CHRONIC GASTRITIS INVOLVING FUNDIC MUCOSA. Negative for evidence of Helicobacter on H&E stain. Negative for intestinal metaplasia. Negative for dysplasia and malignancy. ICD10 K29.70 GROSS DESCRIPTION: The specimen is received in one formalin filled container labeled with the patient's name, sublabeled "gastric" and consists of 2 portions of tissue which aggregate to 0.5 x 0.4 x 0.3 CM. The specimen is entirely submitted in one cassette. 02/16/2017 [facility] MICRO DESCRIPTION: See diagnosis. ICD-9 CODES: CPT CODES: 1: 14343 Electronically Signed Out Eulalio Baxter MD [facility] [address], [place] [address] Technical component performed at [facility], [facility] [address], [address]
== END 2017-02-16 23:59 | disposition home or self-care (01) ==
LOC: END 11:35
PROVIDERS: ATTEND Internal Medicine Gastroenterology
DX: K29.50 Unspecified chronic gastritis without bleeding (principal); Z87.11 Personal history of peptic ulcer disease
CPT/HCPCS: 43239; 99153; G0500; J2250; J3010; J7030